=== PATIENT | male | born 1990 | race Asian ===

== ENCOUNTER 2016-07-01 05:26 | Inpatient (IN) | payer OTHER ==
[~2016-07-01] VITALS: Ht 170.2 cm; Wt 58.3 kg
[2016-07-01 05:59] LABS: CHLORIDE 107 mEq/L (99-109)
[2016-07-01 06:00] LABS: SODIUM 141 mEq/L (136-147)
[2016-07-01 06:01] LABS: GLUCOSE 109 mg/dL (70-99)
[2016-07-01 06:03] LABS: ANION GAP 11 MEQ/L (2-14)
[2016-07-01 06:04] LABS: SERUM ETHYL ALCOHOL < 10 mg/dL
[2016-07-01 06:06] LABS: HEMATOCRIT 34.3 % (38.0-50.0); MCH 19.6 PG (29.0-34.0); MCHC 30.6 G/DL (30.0-36.0); MCV 63.9 FL (86-99); RBC DIS.WIDTH-SD 47.8 % (39-53); RED BLOOD COUNT 5.37 M/uL (4.00-5.50); UREA NITROGEN (BUN) 11 mg/dL (9-23); WHITE BLOOD COUNT 3.8 K/uL (4.1-10.2)
[2016-07-01 06:08] LABS: GFR ESTIMATE (CALCULATED) > 59 mL/min/
[2016-07-01 06:41] LABS: PLATELET COUNT 161 K/uL (156-360)
[2016-07-01 08:20] LABS: AMPHETAMINE NEGATIVE (500 ng/mL); BARBITURATES NEGATIVE (200 ng/mL); BENZODIAZEPINES NEGATIVE (150 ng/mL); COCAINE NEGATIVE (150 ng/mL); INTERNAL CONTROLS VALID? YES; METHADONE NEGATIVE (200 ng/mL); METHAMPHETAMINE NEGATIVE (500 ng/mL); OPIATES (MORPHINE) NEGATIVE (100 ng/mL); OXYCODONE NEGATIVE (100 ng/mL); PHENCYCLIDINE NEGATIVE (25 ng/mL); PROPOXYPHENE NEGATIVE (300 ng/mL); THC CANNABINOIDS NEGATIVE (50 ng/mL); TRICYCLIC ANTIDEPRESSANTS NEGATIVE (300 ng/mL)
[2016-07-01 12:00] VITALS: BP 105/55
[2016-07-01 13:09] VITALS: BP 105/55
[2016-07-01 15:47] VITALS: BP 132/80
[2016-07-02 07:52] VITALS: BP 105/64
[2016-07-02 15:35] VITALS: BP 122/66
[2016-07-03 07:59] VITALS: BP 115/66
[2016-07-03 16:04] VITALS: BP 118/69
[2016-07-04 08:08] VITALS: BP 108/61
[2016-07-04 16:07] VITALS: BP 118/56
[2016-07-05 07:56] VITALS: BP 113/58
[2016-07-05 15:44] VITALS: BP 114/70
[2016-07-06 08:01] VITALS: BP 97/52
[2016-07-06 15:32] VITALS: BP 123/60
[2016-07-07 07:55] VITALS: BP 104/62
[2016-07-07 15:25] VITALS: BP 107/60
[2016-07-08 09:09] VITALS: BP 103/74
[2016-07-08 16:16] VITALS: BP 109/57
[2016-07-09 07:52] VITALS: BP 99/55
[2016-07-09 15:38] VITALS: BP 115/66
[2016-07-10 07:54] VITALS: BP 91/51
[2016-07-10 15:42] VITALS: BP 113/53
[2016-07-11 09:04] VITALS: BP 105/55
[2016-07-11 15:44] VITALS: BP 108/57
[2016-07-12 07:59] VITALS: BP 111/63
[2016-07-12 15:37] VITALS: BP 121/59
[2016-07-13 07:37] VITALS: BP 86/54
[2016-07-13 16:02] VITALS: BP 117/68
[2016-07-14 07:46] VITALS: BP 99/67
[2016-07-14 16:09] VITALS: BP 116/70
[2016-07-15 07:57] VITALS: BP 92/58
[2016-07-15 15:40] VITALS: BP 118/78
[2016-07-16 08:06] VITALS: BP 120/73
[2016-07-16 15:55] VITALS: BP 114/72
[2016-07-17 07:39] VITALS: BP 140/74
[2016-07-17 15:52] VITALS: BP 125/80
[2016-07-18 09:54] VITALS: BP 104/63
[2016-07-18 15:56] VITALS: BP 116/62
[2016-07-19 07:53] VITALS: BP 123/69
[2016-07-19] MEDS ORDERED: LITHIUM CARBON300 MG PO (10:17)
[2016-07-19] MEDS ORDERED: OLANZAPINE10 MG PO (10:17)
== END 2016-07-19 12:11 | disposition home or self-care (01) | DRG 885 ==
LOC: TRA 05:26 → EDBD 05:26 → EME 05:26 → EDOF 11:17 → 1WEST 11:17
DX: F32.3 Major depressive disorder, single episode, severe with psychotic features (principal); S00.81XA Abrasion of other part of head, initial encounter; S40.812A Abrasion of left upper arm, initial encounter; S40.811A Abrasion of right upper arm, initial encounter; S80.812A Abrasion, left lower leg, initial encounter; S80.811A Abrasion, right lower leg, initial encounter; V47.5XXA Car driver injured in collision with fixed or stationary object in traffic accident, initial encounter
CPT/HCPCS: 70450; 70486; 80048; 80178; 84443; 85027; 90839; 97150 GO; 97165 GO; 99281; 99285; G0480